=== PATIENT | male | born 1980 | race Caucasian/White ===

== ENCOUNTER 2019-10-30 10:15 | Emergency (ER) | payer BC, SELFPAY ==
--- NOTE | ~2019-10-30 | XR_ITS ---
EXAMINATION: XR wrist LT min 3V DATE: 10/30/2019 10:32 INDICATION: Left wrist pain, initial encounter TECHNIQUE: Posteroanterior, ulnar deviation, oblique, and lateral views of the left wrist were obtain ed. COMPARISON: None available FINDINGS: There is an acute, traumatic, closed, intra-articular fracture involving the distal articul ar surface of the radius. No additional acute osseous findings are evident. Wrist soft tissue swellin g is present. IMPRESSION: 1. Acute intra-articular fracture of the distal radius. Reviewed, dictated and finalized at location [facility].
[2019-10-30 10:24] VITALS: BP 110/72; PULSE 85; RESP 20; TEMP 36.4; O2SAT 98
--- NOTE | 2019-10-30 10:41 | ED.UPPEXIN ---
HPI - Extremity Injury (Upper) General Chief Complaint: Extremity Injury, Upper Stated Complaint: L/wrist pain Time Seen by Provider: 10/30/19 10:36 Source: patient and RN notes reviewed Mode of arrival: ambulatory Limitations: no limitations History of Present Illness HPI narrative: Patient presents today complaining of a left wrist injury. He fell backwards last night onto an outstretched hand. Denies numbness or tingling in the arm or fingers. Currently rates his pain 7/10, which increases with movement. He has tried ice and ibuprofen with mild relief. Reports history of distal ulna fracture many years ago. MD complaint: injury to: left and wrist Related Data Home Medications Medication Instructions Recorded Confirmed No Home Medications 10/30/19 10/30/19 Allergies Allergy/AdvReac Type Severity Reaction Status Date / Time No Known Allergies Allergy Unknown Verified 05/02/19 14:59 Review of Systems Review of Systems: Narrative: CONSTITUTIONAL: Denies body aches, fever, chills, or sweats. EYES: Denies visual changes, redness, or discharge. ENT: Denies rhinorrhea, congestion, sore throat, or otalgia. CARDIOVASCULAR: Denies chest pain, palpitations, or edema. RESPIRATORY: Denies cough or dyspnea. GASTROINTESTINAL: Denies abdominal pain, nausea, vomiting, or diarrhea. GENITOURINARY: Denies dysuria or hematuria. SKIN: Denies rash, itching, or wounds. MUSCULOSKELETAL: Denies back pain, or myalgia. + Left wrist injury NEUROLOGIC: Denies headache, numbness, tingling, or weakness. PSYCH: Denies depression or anxiety. PMFSH Social History Social History Smoking status: Former smoker Alcohol intake: current Gender identity (if verbalized by the patient): Male Comments At time of signature, I have reviewed and agree with nursing past medical, surgical, social and family history unless otherwise noted. Please see nursing chart for further information. There is no relevant family history pertinent to the presenting complaint Exam Narrative: Exam Narrative: GENERAL: Well-appearing, well-nourished, and in no acute distress. HEAD: Normocephalic, atraumatic. EYES: EOMI. No redness or drainage. Conjunctivae normal. ENT: Mucous membranes pink and moist. NECK: Normal AROM. CHEST: No respiratory distress. EXTREMITIES: Left wrist: Mild edema to the distal radius. Distal sensation intact. Capillary refill normal. Radial pulse normal. No snuffbox tenderness. Somewhat limited AROM due to pain. SKIN: Warm, dry, no rash. Capillary refill normal. Normal skin turgor. NEURO: No focal deficits. Alert and oriented x3. Gait steady. PSYCH: Normal affect. No signs of depression or anxiety. Course Vital Signs Vital signs: Vital Signs Temperature 97.6 F 10/30/19 10:24 Pulse Rate 85 10/30/19 10:24 Respiratory Rate 10/30/19 10:24 Blood Pressure 110/72 10/30/19 10:24 Pulse Oximetry 98 10/30/19 10:24 Temperature 97.6 F 10/30/19 10:24 Pulse Rate 85 10/30/19 10:24 Respiratory Rate 10/30/19 10:24 Blood Pressure 110/72 10/30/19 10:24 Pulse Oximetry 98 10/30/19 10:24 Reviewed Procedures Orthopedic Splinting/Casting Injury #1: Splinting/Casting Date: 10/30/19 Splinting/Casting Time: 10:49 Side: left Upper Extremity Injury Location: wrist Upper Extremity Immobilizer: volar splint Splint: customized in ED Pre-Procedure Neuro Vascular Exam: normal Post-Procedure Neuro Vascular Exam: normal Additional Comments: OCL placed by tech MDM - Extremity Injury (Upper) Differential Diagnosis Differential diagnosis: Likely sprain and strain of wrist, fracture of wrist, fracture of hand and other (hand sprain) Imaging Data Radiologist's impression: ITS Impressions Wrist X-Ray 10/30/19 10:38 IMPRESSION: 1. Acute intra-articular fracture of the distal radius. Cr
== END 2019-10-30 11:02 | disposition home or self-care (01) ==
PROVIDERS: Emergency Provider Nurse Practitioner; PCP Family Medicine
DX: S52.572A Other intraarticular fracture of lower end of left radius, initial encounter for closed fracture (principal); W19.XXXA Unspecified fall, initial encounter; Z87.891 Personal history of nicotine dependence
CPT/HCPCS: 29125; 73110; 99214; G0463

== ENCOUNTER 2022-02-17 08:48 | Emergency (ER) | payer BC, SELFPAY ==
[2022-02-17 09:03] VITALS: BP 145/74; PULSE 89; RESP 16; TEMP 36.3; O2SAT 99
--- NOTE | 2022-02-17 09:44 | ED.BACK ---
HPI - Back Pain/Injury General Chief Complaint: Back Pain/Injury Stated Complaint: mid-back pain Time Seen by Provider: 02/17/22 09:44 Source: patient Mode of arrival: ambulatory Limitations: no limitations History of Present Illness HPI Narrative: 41 year male presented for complaint of mid upper back pain for 3 days. Endorses he woke with pain the at the onset. He denies injury. He thinks he might have slept wrong. He has taken ibuprofen without relief. He states his been getting worse the last few days. He denies numbness, tingling, weakness to the extremities.He denies decreased range of motion to the upper extremities. He endorses the pain does get worse when he turns his neck side to side. Related Data Allergies Allergy/AdvReac Type Severity Reaction Status Date / Time No Known Allergies Allergy Unknown Verified 02/17/22 09:33 Review of Systems Review of Systems: CONSTITUTIONAL: Denies body aches, fever, chills EYES: Denies visual changes CARDIOVASCULAR: Denies chest pain, palpitations, or edema. RESPIRATORY: Denies cough or dyspnea. GASTROINTESTINAL: Denies abdominal pain, nausea, vomiting, or diarrhea. SKIN: Denies rash, itching, or wounds. MUSCULOSKELETAL: reports back pain NEUROLOGIC: Denies headache, numbness, tingling, or weakness. All systems reviewed & are unremarkable except as noted in HPI and below PMFSH Family History Family History Other Family history of Alzheimer's disease Family history of coronary artery disease Hypertension Social History Social History Smoking status: Former smoker Alcohol intake: current Gender identity (if verbalized by the patient): Male Comments At time of signature, I have reviewed and agree with nursing past medical, surgical, social and family history unless otherwise noted. Please see nursing chart for further information. There is no relevant family history pertinent to the presenting complaint Exam Narrative: GENERAL: Well-appearing, well-nourished, and in no acute distress. HEAD: Normocephalic, atraumatic. EYES: conjunctivae clear NECK: Supple. full ROM CHEST: Speaks in full sentences. No respiratory distress. HEART: Regular rate and rhythm. Normal and equal peripheral pulses. MUSC: No Vertebral point tenderness. BUEs with normal strength and sensation, normal range of motion. Mild paraspinal tenderness to right T3-4 area; No open wounds/rash; alignment normal, pulse palpable and equal bilaterally, skin warm, dry, pink. Capillary refill less than 3 seconds. Gait steady. SKIN: Warm, dry, no rash. NEURO: Alert and oriented x3. Course Course Emergency Course: Patient is aware of diagnosis, understands and agrees to treatment plan. Anticipatory guidance given. Patient agrees to follow-up as directed and is aware of reasons to seek care at the emergency department. Portions of this record may have been created with voice recognition software Level of Care: Express Care Visit Vital Signs Vital signs: Vital Signs Temperature 97.3 F L 02/17/22 09:03 Pulse Rate 89 02/17/22 09:03 Respiratory Rate 16 02/17/22 09:03 Blood Pressure 145/74 H 02/17/22 09:03 Pulse Oximetry 99 02/17/22 09:03 Oxygen Delivery Room Air 02/17/22 09:03 Temperature 97.3 F L 02/17/22 09:03 Pulse Rate 89 02/17/22 09:03 Respiratory Rate 16 02/17/22 09:03 Blood Pressure 145/74 H 02/17/22 09:03 Pulse Oximetry 99 02/17/22 09:03 Oxygen Delivery Room Air 02/17/22 09:03 Reviewed MDM - Back Pain/Injury MDM Narrative Medical decision making narrative: Advised supportive measures and s/s to go to the ER. Pt is stable and appropriate for outpt treatment and follow up with pcp. Differential Diagnosis Differential diagnosis: Likely thoracic back pain, discitis and other (radiculopathy) Discharge Plan Discharge Clinical
== END 2022-02-17 10:08 | disposition home or self-care (01) ==
PROVIDERS: Emergency Provider Nurse Practitioner Family; PCP Family Medicine
DX: M54.9 Dorsalgia, unspecified (principal); Z87.891 Personal history of nicotine dependence
CPT/HCPCS: 99213; G0463

== ENCOUNTER 2022-09-29 06:40 | Emergency (ER) | payer BC, SELFPAY ==
[2022-09-29] VITALS (8 sets, daily range): BP systolic 99–124; BP diastolic 68–92; PULSE 80–108; RESP 12–18; TEMP 36.4; O2SAT 97–98
--- NOTE | ~2022-09-29 | CT_ITS ---
CT of the Abdomen and Pelvis: Indication: Vomiting Technique: 2.5 mm axial scans were obtained through the abdomen and pelvis following intravenous adm inistration of 100 cc of Omnipaque 350. Dose reduction technique was used on this scan by utilizing a utomated exposure control and iterative reconstruction technique. The dose-length product (DLP) was 4 98.03 mGy-cm. COMPARISON: 12/13/2014 Findings: Scans through the lung bases are unremarkable. The liver, spleen, pancreas, gallbladder, adrenals and kidneys are within normal limits. No evidence of aortic aneurysm. No lymphadenopathy. Questionable wall thickening of the gastric antrum. No bowel obstruction. No abscess or free air. Images through the pelvis were performed. Urinary bladder unremarkable. Prostate gland and seminal ve sicles are unremarkable. No ascites. Impression: Possible wall thickening gastric antrum. Correlate for gastritis, or possibly peptic ulcer disease. Reviewed, dictated and finalized at [facility]. Impression: Possible wall thickening gastric antrum. Correlate for gastritis, or possibly p eptic ulcer disease.
--- NOTE | 2022-09-29 07:41 | ED.NAVMDI ---
HPI - Nausea/Vomiting/Diarrhea General Chief complaint: Nausea/Vomiting/Diarrhea Stated complaint: N/V, heartburn Time Seen by Provider: 09/29/22 07:41 Source: patient and family Mode of arrival: ambulatory Limitations: no limitations History of Present Illness HPI Narrative: 41 years old white male came to the emergency room complaining of indigestion, nausea and vomiting over the last 3 days. History of intermittent heartburn, currently patient on no medications, he smokes, drinks occasionally, denies any drug use or abuse. Patient denies any abdominal pain, fever, chills, diarrhea or constipation. Related Data Allergies Allergy/AdvReac Type Severity Reaction Status Date / Time No Known Allergies Allergy Unknown Verified 09/29/22 07:18 Review of Systems Review of Systems: All systems reviewed & are unremarkable except as noted in HPI and below PMFSH Family History Family History Other Family history of Alzheimer's disease Family history of coronary artery disease Hypertension Social History Social History Smoking status: Former smoker Alcohol intake: current Gender identity (if verbalized by the patient): Male Exam Narrative: General appearance: Well-developed, well-nourished Skin: Normal color Head: Normocephalic, nontraumatic Eyes: Clear conjunctiva ENT: Oropharynx normal, ears normal, nose normal Neck: Supple, nontender Chest and respiratory: Airway patent, no respiratory distress, no accessory muscle use Heart: Regular rate/rhythm Abdomen: Soft, nontender, no organomegaly, quiet bowel sounds Vascular: Normal peripheral pulses, normal capillary refill. Musculoskeletal: Normal range of motion, nontender back Neurologic: Alert and oriented ?3, HIDE SALTER is normal as tested, no gross motor deficit Course Reevaluation(s) Reevaluation #1: Feeling much better after IV fluid Date: 09/29/22 Time: 08:23 Vital Signs Vital signs: Vital Signs Temperature 36.4 C 09/29/22 06:45 Pulse Rate 108 H 09/29/22 06:45 Respiratory Rate 18 09/29/22 06:45 Blood Pressure 120/80 09/29/22 06:45 Pulse Oximetry 98 09/29/22 06:45 Oxygen Delivery Room Air 09/29/22 06:45 Temperature 36.4 C 09/29/22 06:45 Pulse Rate 83 09/29/22 08:01 Respiratory Rate 14 09/29/22 08:01 Blood Pressure 124/78 09/29/22 08:01 Pulse Oximetry 97 09/29/22 07:20 Oxygen Delivery Room Air 09/29/22 06:45 MDM - Nausea/Vomiting/Diarrhea MDM Narrative Medical decision making narrative: Patient presents with indigestion, nausea, and intermittent vomiting. History of intermittent GERD, and medication as needed. Physical exam was unremarkable, differential diagnosis: Gastritis, peptic ulcer disease, pancreatitis, cholecystitis, dehydration, electrolyte imbalance Workup today include CBC, CMP, lipase, urine analysis, CT abdomen pelvis with IV contrast which showed WBC of 13.5 with slight left shift, reactive leukocytosis is my concern, CAT scan of the abdomen and pelvis showed possible wall thickening gastric antrum, gastritis or possibly peptic ulcer disease In the ED patient received 2 L of normal saline, 4 mg of Zofran, GI cocktail with remarkable improvement. Patient to be discharged on Protonix 40 mg once a day for 30 days to follow-up with a mat gauger for possible EGD. Differential Diagnosis Differential diagnosis: Likely gastroenteritis, drug-induced nausea and vomiting, dehydration and other (Gastritis, peptic ulcer disease, pancreatitis, cholecystitis) Medical Records Attestation: I reviewed the patient's medical
[2022-09-29 07:43] LABS: Basophils Percent Auto 0.3 % (0.2-1.2); Eosinophils Absolute Auto 0.1 K/mm3 (0-0.3); Eosinophils Percent Auto 0.4 % (0-4.4); Hematocrit 48.1 % (42.0-52.0); Hemoglobin 16.1 g/dL (14.0-18.0); Immature Granulocyte Absolute 0.04 K/mm3 (0.00-0.031); Immature Granulocyte Percent A 0.3 % (0-0.5); Lymphocytes Absolute Auto 1.45 K/mm3 (0.9-3.2); Lymphocytes Percent Auto 10.7 % (18.3-44.2); Mean Corpuscular HGB Conc 33.5 g/dl (32-36); Mean Corpuscular Hemoglobin 30.3 pg (26-34); Mean Corpuscular Volume 90.6 fl (80-100); Mean Platelet Volume 10.2 fl (7.4-10.4); Monocytes Absolute Auto 1.2 K/mm3 (0.1-0.6); Neutrophils Absolute Auto 10.7 K/mm3 (1.3-6.7); Neutrophils Percent Auto 79.3 % (45.5-73.1); Platelet Count Result 306 k/mm3 (150-375); Red Blood Count 5.31 M/mm3 (4.6-6.20); Red Cell Distribution Width 12.3 % (11.5-14.5); White Blood Count 13.5 K/mm3 (4.5-10.0)
[2022-09-29 07:53] LABS: Alanine Aminotransferase 26 U/L (6-50); Albumin Level 4.9 g/dL (3.5-5.1); Alkaline Phosphatase 73 U/L (38-126); Anion Gap 11 mmol/L (8-16); Aspartate Amino Transferase 27 U/L (17-59); Bilirubin,Total 0.9 mg/dL (0.2-1.3); Blood Urea Nitrogen 17 mg/dL (9-20); Calcium 9.8 mg/dL (8.4-10.2); Carbon Dioxide 31 mmol/L (22-30); Chloride 95 mmol/L (98-107); Estimated CRCL calculation 88 ml/min; Estimated Glomerular Filt Rate > 60; Glucose 112 mg/dL (65-110); Lipase 46 U/L (23-300); Potassium 4.2 mmol/L (3.4-5.0); Sodium 137 mmol/L (137-145)
[2022-09-29] MEDS: ONDANSETRON INJ 4 MG/2 ML VIAL IV PUSH (07:58)
[2022-09-29] MEDS: SODIUM CHLORIDE 0.9% IV 1,000 ML 999 ML IV CONT ×2 (07:58→08:48)
--- NOTE | 2022-09-29 09:29 | PC.NURSE ---
c/o nausea returning. ERP aware.
[2022-09-29] MEDS: BELLADONNA ALK/PHENOB ELIX 10 ML, MAG HYDROX/ALUMINUM HYD/SIMETH 30 ML, LIDOCAINE HCL 2... PO (09:35)
[2022-09-29 10:18] LABS: Appearance Urine Clear (Clear); Bilirubin Urine Negative (Negative); Blood Urine Negative (Negative); Color Urine Yellow (Yellow); Glucose Urine UA Negative (Negative); Ketones Urine 3+ mg/dL (Negative); Leukocyte Esterase Ur Negative LEU/UL (Negative); Nitrate Urine Negative (Negative); Protein Urine 2+ mg/dL (Negative)
[2022-09-29 10:26] LABS: RBC Urine 0-2 /hpf (0-2); Specific Grav Ur >= 1.099 (1.001-1.035); WBC Urine 0-5 /hpf
[2022-09-29 10:27] LABS: Amorphous Sediment Urine Few; Bacteria Urine None Seen /hpf; Need Manual Microscopic Yes; Squamous Epithelial Cell Urine None seen /hpf (Few)
[2022-09-29 10:28] LABS: Add Urine Microscopic? YES
== END 2022-09-29 10:21 | disposition home or self-care (01) ==
PROVIDERS: Emergency Provider Emergency Medicine; PCP Family Medicine
DX: K29.70 Gastritis, unspecified, without bleeding (principal); K29.80 Duodenitis without bleeding; Z87.891 Personal history of nicotine dependence
CPT/HCPCS: 36415; 74177; 80053; 81001; 83690; 85025; 96361; 96374; 99284; A9270; J2405; J7030; Q9967